=== PATIENT | male | born 1975 | race Caucasian/White ===

== ENCOUNTER 2024-11-03 16:28 | Emergency (ER) | payer OTHER ==
[~2024-11-03] VITALS: Ht 180.3 cm; Wt 92.1 kg
[2024-11-03] MEDS ORDERED: TOBRADEX ST EYE5 ML OP (19:36)
== END 2024-11-03 20:31 | disposition home or self-care (01) ==
LOC: ER 16:29
DX: H01.001 Unspecified blepharitis right upper eyelid (principal)